=== PATIENT | female | born 1950 | race Caucasian/White ===

== ENCOUNTER 2021-05-09 16:52 | Observation (INO) ==
[2021-05-09] MEDS ORDERED: ONDANSETRON 4 MG/2 ML VIAL IV STA (17:51)
[2021-05-09] MEDS ORDERED: SODIUM CHLORIDE 0.9% 1,000 ML IV STA (17:51)
[2021-05-09] MEDS ORDERED: KETOROLAC 30 MG/1 ML VIAL IV STA (17:52)
[2021-05-09 17:55] LABS: Basophils % 0.1 % (0.0-0.8); Eosinophils % 0.3 % (0.00-10.9); Hematocrit 38.2 VOL% (35.7-47.0); Hemoglobin 12.2 GM/DL (12.0-16.0); Immature Granulocytes % 0.6 %; Immature Granulocytes Absolute 0.06 #; Lymphocytes # 0.7 10*3/uL (1.4-4.0); Lymphocytes % 7.1 % (21.3-54.2); Mean Corpuscular HGB Conc 31.9 GM/DL (32-36); Mean Corpuscular Volume 82.2 FL (87-102); Mean Platelet Volume 8.6 FL (9.6-12.0); Monocytes % 4.9 % (1.7-12.7); Platelet Count 304 T/CUMM (130-400); Red Blood Count 4.65 MC/CUMM (3.8-5.5); Red Cell Distribution Width 15.7 % (9.3-17.3); White Blood Count 9.9 T/CUMM (4-12)
[2021-05-09 18:09] LABS: Bacteria,Urine Occasional /HPF (Few); Bilirubin,Urine Negative (Negative); Blood, Urine Moderate mg/dL (Negative); Glucose,Urine (UA) Negative (Negative); Hyaline Casts,Urine 3 /LPF (0-3); Ketones,Urine 5 mg/dL (Negative); Mucus,Urine Moderate /LPF (Occasional); Nitrite,Urine Negative (Negative); Protein,Urine 30 MG/DL; RBC,Urine 20 /HPF (0-4); Squamous Epithelial Cell,Urine Occasional /HPF (0-10); Urine Appearance CLEAR (Clear); Urine Color Yellow (Yellow); Urine Specific Gravity 1.018 (1.001-1.035); Urine Urobilinogen < 2.0 EU/DL (0.2-1.0)
[2021-05-09 18:09] LABS: Calcium 9.2 MG/DL (8.5-10.1); Osmolality,Calculated 281.5 MOS/KG (273-304); Potassium 3.5 MMOL/L (3.5-5.1); Total Protein 7.9 G/DL (6.4-8.2)
[2021-05-09] MEDS ORDERED: GLUCAGON 1 MG VIAL IM PRN (20:19)
[2021-05-09] MEDS ORDERED: ACETAMINOPHEN 325 MG TABLET PO PRN (20:19)
[2021-05-09] MEDS ORDERED: ONDANSETRON 4 MG/2 ML VIAL IV PRN (20:19)
[2021-05-09] MEDS ORDERED: DEXTROSE 50% 25 GM/50 ML SYRINGE IV PRN (20:19)
[2021-05-09] MEDS ORDERED: hydrALAZINE 20 MG/1 ML VIAL IV PRN (20:19)
[2021-05-09] MEDS ORDERED: HYDROmorphone 2 MG/1 ML VIAL IV PRN (20:19)
[2021-05-09] MEDS ORDERED: SODIUM CHLORIDE 0.9% 1,000 ML IV SCH (20:30)
[2021-05-09] MEDS ORDERED: LEVOFLOXACIN INJ 750 MG/150 ML PREMIX IV SCH (21:00)
[2021-05-10] MEDS ORDERED: DEXAMETHASONE 4 MG/1 ML VIAL ONE ×2 (07:33→08:16)
[2021-05-10] MEDS ORDERED: propofoL 200 MG/20 ML VIAL IV ONE (07:33)
[2021-05-10] MEDS ORDERED: SEVOFLURANE 1 UNIT/15 MINUTE INH ONE (07:33)
[2021-05-10] MEDS ORDERED: LIDOCAINE 2% 5 ML VIAL ONE (07:33)
[2021-05-10] MEDS ORDERED: ONDANSETRON 4 MG/2 ML VIAL ONE (07:33)
[2021-05-10] MEDS ORDERED: GLYCOPYRROLATE 0.4 MG/2 ML VIAL ONE (08:25)
[2021-05-10] MEDS ORDERED: cefTRIAXone 1,000 MG VIAL ONE (08:32)
[2021-05-10] MEDS ORDERED: PHENYLEPHRINE 1 MG/10 ML SYRINGE IV ONE (08:44)
[2021-05-10] MEDS ORDERED: amLODIPine 5 MG TABLET PO SCH (09:00)
[2021-05-10] MEDS ORDERED: PANTOPRAZOLE 40 MG VIAL IV SCH (09:00)
[2021-05-10] MEDS ORDERED: TAMSULOSIN 0.4 MG CAPSULE PO SCH (09:00)
[2021-05-10 13:12] VITALS: BP 140/68
[2021-05-10 13:17] LABS: Basophils % 0.2 % (0.0-0.8); Eosinophils # 0.1 10*3/uL (0.0-0.87); Eosinophils % 1.6 % (0.00-10.9); Hematocrit 31.1 VOL% (35.7-47.0); Hemoglobin 9.9 GM/DL (12.0-16.0); Immature Granulocytes % 0.5 %; Immature Granulocytes Absolute 0.03 #; Lymphocytes # 1.3 10*3/uL (1.4-4.0); Lymphocytes % 20.5 % (21.3-54.2); Mean Corpuscular HGB Conc 31.8 GM/DL (32-36); Mean Corpuscular Volume 80.4 FL (87-102); Mean Platelet Volume 8.2 FL (9.6-12.0); Monocytes % 7.4 % (1.7-12.7); Neutrophils % 69.8 % (38.7-73.9); Platelet Count 255 T/CUMM (130-400); Red Blood Count 3.87 MC/CUMM (3.8-5.5); Red Cell Distribution Width 15.8 % (9.3-17.3); White Blood Count 6.1 T/CUMM (4-12)
[2021-05-10 13:44] LABS: Calcium 8.6 MG/DL (8.5-10.1)
[2021-05-10 13:45] LABS: Osmolality,Calculated 281.3 MOS/KG (273-304); Potassium 3.6 MMOL/L (3.5-5.1)
[2021-05-10] MEDS ORDERED: ATORVASTATIN 20 MG TABLET PO SCH (21:00)
== END 2021-05-10 15:30 | disposition home or self-care (01) ==
LOC: EDBD → N.EDINP 16:52 → N.ED 16:52 → N.EDINP 21:15 → N.5E 21:58
PROVIDERS: ADMIT Internal Medicine; ATTEND Internal Medicine